=== PATIENT | male | born 1965 | race Caucasian/White ===

== ENCOUNTER 2018-03-10 11:32 | Emergency (ER) | payer OTHER ==
[~2018-03-10] VITALS: Ht 182.9 cm; Wt 95.3 kg
--- NOTE | 2018-03-10 12:28 | RADIOLOGY REPORT ---
EXAMINATION: XR CHEST CLINICAL INFORMATION: Weakness COMPARISON: None TECHNIQUE: 2 views of the chest were obtained. FINDINGS: The lungs are well-inflated and clear. Trachea is midline in position. No interstitial disease, consolidation, mass, pneumothorax or pleural effusion. The cardiac silhouette is normal in size. The mediastinal, hilar and diaphragmatic contours are normal. Bones are unremarkable. The upper abdomen is unremarkable. IMPRESSION: No acute pulmonary disease.
[2018-03-10 12:41] LABS: ABSOLUTE BASOPHIL COUNT 0 /CUMM (0.0-0.2); ABSOLUTE EOSINOPHIL COUNT 0.1 /CUMM (0.0-0.7); ABSOLUTE GRANULOCYTE CT 4.6 /CUMM (1.4-6.5); ABSOLUTE LYMPH COUNT 2.2 /CUMM (1.2-3.4); ABSOLUTE MONOCYTE COUNT 0.4 /CUMM (0.10-0.60); BASOPHIL % 0.4 % (0.0-2.0); EOSINOPHIL % 1.3 % (0-5); HEMATOCRIT 46.1 % (42-52); MEAN CORPUSCULAR HGB 29.6 PG (27.0-31.0); MEAN CORPUSCULAR VOLUME 84.6 FL (80.0-94.0); MEAN PLATELET VOLUME 7.7 FL (7.4-10.4); PLATELET COUNT 290 /CUMM (130-400); RBC DISTRIBUTION WIDTH 13.9 % (11.5-14.5); RED BLOOD CELL CT 5.45 /CUMM (4.70-6.10); WHITE BLOOD CELL COUNT 7.4 /CUMM (4.8-10.8)
--- NOTE | 2018-03-10 12:49 | ED GENERAL ADULT ---
History of Present Illness General Chief Complaint: General Adult Stated Complaint: "I JUST DON'T FEEL RIGHT" Source: patient Exam Limitations: no limitations Vital Signs & Intake/Output Vital Signs & Intake/Output Vital Signs Date Time Temp Pulse Resp B/P B/P Pulse O2 O2 Flow FiO2 Mean Ox Delivery Rate 03/10 1328 98.1 70 18 131/90 97 Room Air Room Air 03/10 1228 Room Air 03/10 1139 98.6 82 18 147/98 98 Room Air Allergies Coded Allergies: No Known Allergies (03/10/18) Reconcile Medications No Known Home Medications Triage Note: PT COMPLAINS OF NOT FEELING RIGHT SINCE SATURDAY, NO ENERGY, A LITTLE LIGHT HEADED, DENIES CP/SOB, AUTUMN 147/98 DENIES HISTORY OF HTN AND TAKES NO MEDS AT HOME. APPETITE GOOD . Triage Nurses Notes Reviewed? yes HPI: Patient presents for evaluation of "not feeling well". Patient states symptoms began rather gradually on Saturday. He states today while at work he felt tired and without energy. He does work in a warehouse. He denies any unusual exertion. She likewise denies fever, cold symptoms, headaches, chest pain, dyspnea, abdominal pain, vomiting, diarrhea, dysuria, rashes or prior episodes. He states he has felt intermittent lightheadedness. Patient describes symptoms as more or less constant but waxing and waning in intensity. Nothing seems to make him feel better. Past History Travel History Traveled to [place] past 21 day No Medical History Any Pertinent Medical History? see below for history Neurological: NONE EENT: NONE Cardiovascular: NONE Respiratory: NONE Gastrointestinal: NONE Hepatic: NONE Renal: NONE Musculoskeletal: NONE Psychiatric: NONE Endocrine: NONE Blood Disorders: NONE Cancer(s): NONE HARNESS FITTER/Reproductive: NONE Surgical History Surgical History: non-contributory Psychosocial History What is your primary language Dutch Tobacco Use: Current Not Daily ETOH Use: denies use Illicit Drug Use: denies illicit drug use Family History Hx Contributory? No Review of Systems Review of Systems Constitutional: Reports: see HPI. EENTM: Reports: no symptoms. Respiratory: Reports: no symptoms. Cardiovascular: Reports: no symptoms. GI: Reports: no symptoms. Genitourinary: Reports: no symptoms. Musculoskeletal: Reports: no symptoms. Skin: Reports: no symptoms. Neurological/Psychological: Reports: no symptoms. Hematologic/Endocrine: Reports: no symptoms. Immunologic/Allergic: Reports: no symptoms. All Other Systems: Reviewed and Negative Physical Exam Physical Exam General Appearance: SEE BELOW Comments: Gen.: Well-nourished, well-developed, no acute respiratory distress. Head: Normocephalic, atraumatic. Eyes: Normal inspection bilaterally Ears: Normal inspection bilaterally Nose: Normal inspection Throat/mouth : Moist mucosa Neck: Supple, full range of motion, no goiter Heart: Regular rate and rhythm, no murmurs rubs or gallops Lungs: Clear to auscultation bilaterally with normal air entry Chest: Nontender Back: Normal range of motion Abdomen: Soft, nontender, nondistended, normal bowel sounds Extremities: Normal range of motion grossly, equal radial pulses, no cyanosis clubbing or edema Neurologic: Cranial nerves grossly intact, speech is clear Skin: warm and dry Psychiatric: Calm, cooperative, no apparent delusions or hallucinations Core Measures ACS in differential dx? No CVA/TIA Diagnosis: No Sepsis Present: No Sepsis Focused Exam Completed? No Progress Differential Diagnoses I considered the following diagnoses in my evaluation of the patient: Anemia, electrolyte abnormality, hypo-thyroidism, mononucleosis/occult infection Plan of Care: Orders Procedure Date/time Status Add-on Test (ER Only) 03/10 1249 Active TSH REFLEX 03/10 1220 Complete BLOOD CULTURE 03/10 1147 Active URINALYSIS 03/10 1147 Complete TROPONIN LEVEL 03/10 1147 Complete LYME TITRE 03/10 1147 Active LACTIC ACID 03/10 1147 Complete MONOSPOT 03/10 1147 Active COMPREHENSIVE METABOLIC PANEL 03/10 1147 Complete CBC WITHOUT DIFFERENTIAL 03/10 1147 Complete EKG 03/10 1147 Active Laboratory Tests 03/10/18 1447: Lactic Acid Cancelled 03/10/18 1303: Urine Color YEL, Urine Clarity CLEAR, Urine pH 6.0, Ur Specific [place] 1.020, Urine Protein NEG, Urine Ketones NEG, Urine Nitrite NEG, Urine Bilirubin NEG, Urine Urobilinogen 0.2, Ur Leukocyte Esterase NEG, Ur Microscopic SEDIMENT EXAMINED, Urine RBC RARE, Ur Epithelial Cells RARE, Urine Hemoglobin TRACE-LYSED H, Urine Glucose NEG 03/10/18 1220: Anion Gap 6, Estimated GFR > 60, BUN/Creatinine Ratio 14.4, Glucose 113 H, Lactic Acid 1.3, Calcium 9.8, Total Bilirubin 0.5, AST 25, ALT 44, Alkaline Phosphatase 59, Troponin I < 0.01, Total Protein 7.3, Albumin 4.9, Globulin 2.4, Albumin/Globulin Ratio 2.0, TSH &T3 &Free T4 Intrp 0.978, CBC w Diff NO MAN DIFF REQ, RBC 5.45, MCV 84.6, MCH 29.6, MCHC 35.0, RDW 13.9, MPV 7.7, Gran % 63.0, Lymphocytes % 29.5, Monocytes % 5.8, Eosinophils % 1.3, Basophils % 0.4, Absolute Granulocytes 4.6, Absolute Lymphocytes 2.2, Absolute Monocytes 0.4, Absolute Eosinophils 0.1, Absolute Basophils 0, Lyme Disease Antibody Pending, Infectious [place] NEGATIVE Microbiology 03/10 1241 BLOOD: Blood Culture - RECD 03/10 1220 BLOOD: Blood Culture - RECD Initial ED EKG: NSR, rate (77), LAFB Comments: 03/10/2018 2:58:23 PM I have updated Marco on test results. The cause of his symptoms unclear at this point so I have requested he follow up with his primary care physician for further evaluation. Departure Departure Disposition: HOME OR SELF CARE Condition: Stable Clinical Impression Primary Impression: Malaise and fatigue Referrals: Leonela NORRIS,Omar Bailey (PCP/Family) Additional Instructions: The cause of your symptoms is unclear at this point. Please follow-up with your primary care physician as scheduled on for further evaluation. Return immediately if any concerns or sudden worsening. Please note that there might be incidental findings in your evaluation that are unrelated to the current emergency department visit. Please notify your primary care doctor about this emergency department visit in order to obtain and review all of the testing performed so that these incidental findings can be monitored as needed. If you had an x-ray performed, please understand that some fractures or other findings may not be seen on the initial set of x-rays. If your symptoms persist you might need a repeat set of x-rays to check for such a fracture. If you had a laceration evaluated, please understand that foreign bodies such as glass or wood may not be visible to the naked eye or on plain x-rays. If the wound becomes red, swollen, increasingly more painful or if there is any drainage from the wound, please have it reevaluated by a physician for the possibility of a retained foreign body. If you're unable to follow up as outlined in the discharge instructions please return to the emergency department. Thank you for choosing the [facility] Emergency Department for your care. It was a pleasure to serve you today. Matthew Cunha M.D. [facility] Departure Forms: Customer Survey General Discharge Information Prescriptions: Current Visit Scripts No Known Home Medications Critical Care Note Critical Care Note Critical Care Time: non-applicable
== END 2018-03-10 15:09 ==
LOC: ERH 11:32
PROVIDERS: Physician Assistant
DX: R53.81 Other malaise (principal); R53.83 Other fatigue
CPT/HCPCS: 86618; 71046; 81001; 87040; 93005; 93010